=== PATIENT | male | born 1955 | race Caucasian/White ===

== ENCOUNTER 2019-07-03 21:35 | Emergency (ER) | payer MEDICARE, MEDICAID ==
[~2019-07-03] VITALS: Ht 177.8 cm; Wt 68.0 kg
[2019-07-03 21:42] VITALS: BP 139/73
== END 2019-07-03 23:20 | disposition home or self-care (01) ==
LOC: ER 21:36
DX: Z48.01 Encounter for change or removal of surgical wound dressing (principal); Z93.6 Other artificial openings of urinary tract status
CPT/HCPCS: 99282; 99284